=== PATIENT | male | born 1990 | race Asian ===

== ENCOUNTER 2017-06-16 09:20 | Emergency (ER) | payer SELFPAY ==
[~2017-06-16] VITALS: Ht 177.8 cm; Wt 114.8 kg
[2017-06-16 09:39] VITALS: BP 148/86
[2017-06-16 10:49] LABS: APPEARANCE,URINE SLIGHTLY CLOUDY; KETONES,URINE 1+ (NEGATIVE); LEUKOCYTE ESTERASE ,URINE 3+ (NEGATIVE); NITRITE,URINE NEGATIVE (NEGATIVE); PH,URINE 7 (4.5-8.0); PROTEIN,URINE 3+ (NEGATIVE); UROBILINOGEN,URINE 1 MG/DL (0.0-1.0)
[2017-06-16 10:59] LABS: BACTERIA,URINE FEW /HPF; EOSINOPHILS % (AUTO) 1.9 % (0.0-3.0); LYMPHOCYTES % (AUTO) 21.4 % (20.0-45.0); MEAN CORPUSCULAR HEMOGLOBIN 28.5 PG (27.0-31.0); MEAN CORPUSCULAR HGB CONC 32.2 G/DL (32.0-36.0); MEAN CORPUSCULAR VOLUME 89 FL (80-99); MEAN PLATELET VOLUME 6.5 FL (6.5-10.1); MONOCYTES % (AUTO) 5.7 % (1.0-10.0); NEUTROPHILS % (AUTO) 70.1 % (45.0-75.0); PLATELET COUNT 342 K/UL (150-450); RBC,URINE 30-40 /HPF (0 - 0); RED BLOOD COUNT 5.54 M/UL (4.70-6.10); RED CELL DISTRIBUTION WIDTH 12.2 % (11.6-14.8); SQUAMOUS EPITHELIAL CELL,UR FEW /LPF (NONE/OCC); WBC,URINE 60-80 /HPF (0 - 0); WHITE BLOOD COUNT 9.9 K/UL (4.8-10.8)
[2017-06-16 11:00] LABS: BASOPHILS % (AUTO) 0.9 % (0.0-2.0)
[2017-06-16] MEDS ORDERED: cefTRIAXone 1 GM in NS 55 ML IVPB ONE (11:15)
[2017-06-16 11:21] LABS: INR 0.9 (0.9-1.1); PROTHROMBIN TIME 9.7 SEC (9.30-11.50)
[2017-06-16 11:32] LABS: TROPONIN I < 0.30 ng/mL (<=0.30)
[2017-06-16 11:34] LABS: ANION GAP 14 (5-15); CARBON DIOXIDE 29 mEQ/L (20-30); CHLORIDE 98 mEQ/L (98-107); CREATININE 0.8 mg/dL (0.7-1.2); GLOMERULAR FILTRATION RATE > 60 mL/min (>60); POTASSIUM 3.4 mEQ/L (3.4-4.9); SODIUM 141 mEQ/L (135-145)
[2017-06-16 11:35] LABS: ASPARTATE AMINO TRANSFERASE 18 U/L (5-40)
[2017-06-16 11:36] LABS: ALANINE AMINOTRANSFERASE 21 U/L (3-41); ALBUMIN/GLOBULIN RATIO 1.5 (1.0-2.7); TOTAL PROTEIN 8.5 g/dL (6.6-8.7)
[2017-06-16 11:50] LABS: CKMB < 1.0 ng/mL (< 6.7)
[2017-06-16 12:13] LABS: LIPASE 24 U/L (< 60)
[2017-06-16 13:06] VITALS: BP 142/83
[2017-06-16] MEDS ORDERED: METRONIDAZOLE500 MG ORAL (14:13)
[2017-06-16] MEDS ORDERED: BACTRIM DS TAB1 EAC1 ORAL (14:13)
--- NOTE | 2017-06-16 14:19 | Diagnostic Imaging Report ---
Clinical Indication: 27-year-old male history of unresolved urinary tract infection, hematuria, history of diverticulitis, recently urinated gas Technique: Patient given oral contrast. Patient also given rectal contrast. IV administration nonionic contrast. Venous phase spiral acquisition obtained through the abdomen and pelvis. Multiplanar reconstructions were generated. Total dose length product 1614 mGycm. CTDIvol(s) 19 and 19 mGy. Dose reduction achieved using automated exposure control Comparison: None Findings: There is sigmoid diverticulosis. There is marked wall thickening of the proximal sigmoid colon. There is inflammation of the perisigmoid fat. There is abnormal tissue and gas seen within or adjacent to the serosal surface of the bladder wall, where some abnormal tissue protruding into the bladder lumen at the dome of the bladder. A few gas bubbles are seen within the bladder. No colonic contrast extravasation into the bladder is demonstrated, however. Some inflammation of the fat between the sigmoid and the bladder wall is demonstrated. The fat plane between the sigmoid and the bladder dome is preserved although infiltrated. No extraluminal fluid collections are demonstrated. The remainder of the colon is normal in caliber, without evidence of wall thickening. The appendix is normal. No small bowel distention or small bowel wall thickening. No free or loculated intraperitoneal air or fluid is evident. The distal esophagus, stomach are unremarkable. The liver demonstrates diffuse low attenuation, compatible with diffuse fatty infiltration. No focal abnormality. The gallbladder, bile ducts, pancreas, spleen, adrenals, left kidney are unremarkable. The right kidney demonstrates a subcentimeter low-attenuation lesion which is too small to characterize. No retroperitoneal or mesenteric mass or adenopathy. No pelvic mass or adenopathy. The included lung bases are clear. The bones are unremarkable except for small presumed bone islands in the left ischium and in the proximal femur on the left. Impression: Evidence of acute sigmoid diverticulitis, with wall thickening of the sigmoid, diverticulosis, and infiltration of the perisigmoid fat. Abnormal soft tissue infiltration is seen extending into the dome of the bladder, with gas bubbles in the serosal bladder wall as well as within the bladder lumen. The fat plane between the, is preserved, and and actual direct fistulous tract is not definitely demonstrated. 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 Note that no rectal contrast is seen to be extravasated into the bladder. Fatty liver Right renal subcentimeter low-attenuation lesion, too small to characterize, most likely a benign simple cortical cyst. No further followup necessary. Findings discussed by phone with Dr. Olivares in the emergency room at the time of interpretation The CT scanner at [facility] is accredited by the [employer] and the scans are performed using protocols designed to limit radiation exposure to as low as reasonably achievable to attain images of sufficient resolution adequate for diagnostic evaluation.
--- NOTE | 2017-06-16 14:35 | Emergency Room Report ---
History of Present Illness General Chief Complaint: Male Urogenital Problems Source: Patient Present Illness HPI Patient presents emergency department today complaining of dysuria and sensation of gas passing through his penis. Patient states that he was treated for diverticulitis about a month ago and also had a UTI at the same time. He was treated with antibiotics but continued to have a UTI symptoms. He saw his primary care physician today explained and symptoms of sensation of passing gas of his penis and his primary care physician was concerned that perhaps he might have a rectal vesicular fistula and was sent here for further evaluation. Patient denies any fever nausea vomiting diarrhea chills. No complaint or noted. Symptoms noted to moderate. Patient states that he did have some blood in his urine yesterday. He is currently on Bactrim.No other modifying factors. No other associated signs and symptoms. No other complaints were noted. Allergies: Coded Allergies: No Known Allergies (Unverified , 06/16/17) Patient History Past Medical History: HTN, other - Diverticulitis Past Surgical History: none Pertinent Family History: none Social History: Denies: alcohol use, drug use, smoking Reviewed Nursing Documentation: PMH: Agreed, PSxH: Agreed Nursing Documentation-PMH Past Medical History: No History, Except For Hx Hypertension: Yes Hx Gastrointestinal Problems: Yes - Diverticulitis Review of Systems All Other Systems: negative except mentioned in HPI Physical Exam Vital Signs Date Time Temp Pulse Resp B/P Pulse Ox O2 Delivery O2 Flow Rate FiO2 06/16/17 09:30 97.5 89 16 152/88 97 Room Air Sp02 EP Interpretation: reviewed, normal General Appearance: normal inspection, well appearing, no apparent distress, alert Head: atraumatic Eyes: bilateral eye normal inspection ENT: normal ENT inspection, hearing grossly normal, normal voice Neck: normal inspection, full range of motion, supple, no bony tend Respiratory: normal inspection, lungs clear, normal breath sounds, no respiratory distress, no retraction, no wheezing Cardiovascular #1: regular rate, rhythm, no edema Gastrointestinal: normal inspection, normal bowel sounds, soft, no guarding, no hernia, tenderness - suprapubic area Genitourinary: no CVA tenderness Musculoskeletal: normal inspection, back normal, normal range of motion Neurologic: normal inspection, alert, responsive, speech normal Psychiatric: normal inspection, judgement/insight normal, mood/affect normal Skin: normal inspection, normal color, no rash Medical Decision Making Diagnostic Impression: Primary Impression: Recto-vesical fistula Additional Impression: UTI (urinary tract infection) Qualified Codes: N39.0 - Urinary tract infection, site not specified; R31.9 - Hematuria, unspecified ER Course Patient presents emergency department today complaining of severe discomfort. Differential into considerations include urinary tract infection, diverticulitis , rectovesical fistula. Patient exam and history is consistent with rectovesical fistula. Laboratory workup did not show any evidence of white count. CT scan however shows evidence of rectovesical fistula. Given patient' s finding patient will be started on Bactrim and Flagyl. Patient is advised to follow urology for repair of this fistula.Patient is advised to follow up with primary doctor in 2-3 days and return the emergency room for any worsening symptoms and as needed. Labs Test 06/16/17 10:30 White Blood Count 9.9 K/UL (4.8-10.8) Red Blood Count 5.54 M/UL (4.70-6.10) Hemoglobin 15.8 G/DL (14.2-18.0) Hematocrit 49.1 % (42.0-52.0) Mean Corpuscular Volume 89 FL (80-99) Mean Corpuscular Hemoglobin 28.5 PG (27.0-31.0) Mean Corpuscular Hemoglobin Concent 32.2 G/DL (32.0-36.0) Red Cell Distribution Width 12.2 % (11.6-14.8) Platelet Count 342 K/UL (150-450) Mean Platelet Volume 6.5 FL (6.5-10.1) Neutrophils (%) (Auto) 70.1 % (45.0-75.0) Lymphocytes (%) (Auto) 21.4 % (20.0-45.0) Monocytes (%) (Auto) 5.7 % (1.0-10.0) Eosinophils (%) (Auto) 1.9 % (0.0-3.0) Basophils (%) (Auto) 0.9 % (0.0-2.0) Prothrombin Time 9.7 SEC (9.30-11.50) Prothromb Time International Ratio 0.9 (0.9-1.1) Activated Partial Thromboplast Time 26 SEC (23-33) Urine Color Yellow Urine Appearance Slightly cloudy Urine pH 7 (4.5-8.0) Urine Specific [place] 1.010 (1.005-1.035) Urine Protein 3+ (NEGATIVE) Urine Glucose (UA) Negative (NEGATIVE) Urine Ketones 1+ (NEGATIVE) Urine Occult Blood 5+ (NEGATIVE) Urine Nitrite Negative (NEGATIVE) Urine Bilirubin Negative (NEGATIVE) Urine Urobilinogen 1 MG/DL (0.0-1.0) Urine Leukocyte Esterase 3+ (NEGATIVE) Urine RBC 30-40 /HPF (0 - 0) Urine WBC 60-80 /HPF (0 - 0) Urine Squamous Epithelial Cells Few /LPF (NONE/OCC) Urine Bacteria Few /HPF (NONE) Sodium Level 141 mEQ/L (135-145) Potassium Level 3.4 mEQ/L (3.4-4.9) Chloride Level 98 mEQ/L (98-107) Carbon Dioxide Level 29 mEQ/L (20-30) Anion Gap 14 (5-15) Blood Urea Nitrogen 13 mg/dL (7-23) Creatinine 0.8 mg/dL (0.7-1.2) Estimat Glomerular Filtration Rate > 60 mL/min (>60) Glucose Level 101 mg/dL (74-106) Calcium Level 10.0 mg/dL (8.6-10.2) Total Bilirubin 0.5 mg/dL (0.0-1.2) Aspartate Amino Transf (AST/SGOT) 18 U/L (5-40) Alanine Aminotransferase (ALT/SGPT) 21 U/L (3-41) Alkaline Phosphatase 79 U/L (40-129) Total Creatine Kinase 65 U/L (26-140) Creatine Kinase MB < 1.0 ng/mL (< 6.7) Creatine Kinase MB Relative Index 1.5 Troponin I < 0.30 ng/mL (<=0.30) Total Protein 8.5 g/dL (6.6-8.7) Albumin 5.1 g/dL (3.5-5.2) Globulin 3.4 g/dL Albumin/Globulin Ratio 1.5 (1.0-2.7) Lipase 24 U/L (< 60) CT/MRI/US Diagnostic Results CT/MRI/US Diagnostic Results : Imaging Test Ordered: ct abd pelv: +rectosigmoid fistula Last Vital Signs Date Time Temp Pulse Resp B/P Pulse Ox O2 Delivery O2 Flow Rate FiO2 06/16/17 13:06 97.3 81 14 142/83 99 Room Air Status: improved Disposition: HOME, SELF-CARE Condition: Stable Scripts Metronidazole* (FLAGYL*) 500 Mg Tablet 500 MG ORAL THREE TIMES A DAY, #42 TAB 0 Refills Prov: CLAUDIA WRIGHT M.D. 06/16/17 Trimethoprim/Sulfamethoxazole 160/800* (BACTRIM DS TABLET*) 1 Each Tablet 1 TAB ORAL TWICE A DAY for 14 Days, TAB Prov: CLAUDIA WRIGHT M.D. 06/16/17 Patient Instructions: Urinary Tract Infection Additional Instructions: You have a rectovesicular fistula. You need to see a urologist for repair. Return to ER if worse or if not able to obtain follow up. CLAUDIA WRIGHT M.D. Jun 16, 2017 14:35
[2017-06-16 14:36] VITALS: BP 137/85
[2017-06-16 14:37] VITALS: BP 137/85
== END 2017-06-16 14:37 | disposition home or self-care (01) ==
LOC: EMR 10:34
DX: N32.2 Vesical fistula, not elsewhere classified (principal); N39.0 Urinary tract infection, site not specified; R31.9 Hematuria, unspecified; I10 Essential (primary) hypertension; K57.90 Diverticulosis of intestine, part unspecified, without perforation or abscess without bleeding; K76.0 Fatty (change of) liver, not elsewhere classified
CPT/HCPCS: 36415; 74177; 80053; 81003; 82550; 82553; 83690; 84484; 85025; 85610; 85730; 87086; 87181; 96360; 99284; J0696; Q9967